=== PATIENT | female | born 1950 | race Caucasian/White ===

== ENCOUNTER 2023-09-21 06:24 | Outpatient (RCR) | payer MEDICARE, OTHER, SELFPAY | END 2023-09-21 23:59 | disposition home or self-care (01) | LOC: RPT 06:24 | PROVIDERS: ATTENDING PHYSICIAN Internal Medicine | DX: M54.51 Vertebrogenic low back pain (principal) | CPT/HCPCS: 97110; 97161 ==

== ENCOUNTER 2023-10-12 12:49 | Outpatient (RCR) | payer MEDICARE, OTHER, SELFPAY | END 2023-10-12 23:59 | disposition home or self-care (01) | LOC: RPT 12:49 | PROVIDERS: ATTENDING PHYSICIAN Internal Medicine | DX: M54.51 Vertebrogenic low back pain (principal); Z73.6 Limitation of activities due to disability | CPT/HCPCS: 97110 ==

== ENCOUNTER 2023-10-24 16:20 | Emergency (ER) | payer MEDICARE, OTHER, SELFPAY ==
[2023-10-24 16:30] VITALS: BP 185/90
--- NOTE | 2023-10-24 16:32 | ED.PDOC.TRB ---
ED Provider Triage
-
Patient seen by provider in Triage?: Seen in Triage
Attestation: A medical screening examination has been initiated by a qualified medical provider. Based on the assessment performed at this time, it has been determined that an emergent medical condition may exist and the patient has been informed
that further medical evaluation and possible additional diagnostic testing may be needed.
HPI: 73-year-old female presents for evaluation of persistent suprapubic discomfort, urinary frequency, and difficulty emptying her bladder over the past week. She was seen by her primary care physician last week and was started on Bactrim however
subsequent urine culture and sensitivity was negative and Bactrim was discontinued. She is no longer on antibiotics. Return to her doctor today at which time she was noted to have 4+ hematuria on urine dip and was referred to the emergency
department. Denies flank pain or fevers
GENERAL: Alert , in no apparent distress
EYE: No visual abnormalities.
NECK: Trachea midline
ENT: No visible abnormalities.
LUNGS: No acute respiratory distress
NEUROLOGICAL: Alert and oriented
SKIN: Skin intact. No visible changes.
MUSCULOSKELETAL: Moving extremities normally
PSYCH: Normal and appropriate interaction.
Assessment: Patient appears clinically well and does not present classically as a kidney stone however given large hematuria will check labs and send for CT of the abdomen pelvis, urinalysis will be sent for completeness
This is a medical evaluation conducted in person to initiate diagnostic evaluation and provide initial therapeutics. Please see further documentation by the treating clinician.
[2023-10-24 17:05] LABS: Urine Albumin Negative (Neg - Trace); Urine Bilirubin Negative (Negative); Urine Character Clear (Clear); Urine Color Yellow; Urine Glucose Negative (Negative); Urine Ketone 1+ (Negative); Urine Leukocyte Trace (Negative); Urine Nitrite Negative (Negative); Urine Occult Blood 3+ (Negative); Urine Specific Gravity 1.015 (<1.030); Urine Urobilinogen Negative (Neg - 1+)
[2023-10-24 17:10] LABS: % Basophils 0.6 % (0-2); % Eosinophils 0.7 % (0-6); % Immature Granulocytes 0.3 % (0-0.5); % Lymphocytes 20.6 % (20.5-51.1); % Monocytes 7.6 % (1.7-9.3); % Neutrophils 70.2 % (42.2-75.2); Absolute Basophils 0.1 10^3/uL (0-0.2); Absolute Eosinophils 0.1 10^3/uL (0-0.7); Absolute Lymphocytes 1.8 10^3/uL (1.2-3.4); Absolute Monocytes 0.7 10^3/uL (0.1-0.6); Absolute Neutrophils 6.2 10^3/uL (1.4-6.5); Hematocrit 35.3 % (37.0-47.0); Hemoglobin 12.9 g/dL (12.0-16.0); Mean Corp Hgb Conc. 36.5 g/dL (33.0-37.0); Mean Corpuscular Hgb 30.7 pg (27.0-31.0); Mean Platelet Volume 9.6 fL (7.4-10.4); Nucleated Red Blood Cells % 0 %; Platelet Count 277 10^3/uL (130-400); White Blood Cell Count 8.8 10^3/uL (4.8-10.8)
[2023-10-24 17:14] LABS: ALT (SGPT) 29 U/L (0-35); AST (SGOT) 32 U/L (14-36); Albumin 4.6 g/dl (3.5-5.0); Alkaline Phosphatase 67 U/L (38-126); Blood Urea Nitrogen 23 mg/dl (7-17); Calcium 9.6 mg/dl (8.4-10.2); Carbon Dioxide 21 mmol/L (22-30); Chloride 89 mmol/L (98-107); Glucose 107 mg/dl (70-99); Potassium 3.6 mmol/L (3.5-5.1); Sodium 127 mmol/L (135-145); Total Bilirubin 0.8 mg/dl (0.2-1.3); Total Protein 7.4 g/dl (6.3-8.2); eGFR > 60.00
[2023-10-24 17:22] LABS: Urine Bacteria Few (Negative); Urine Red Blood Cell 16-20 /HPF (0-2); Urine Squamous Cell 21-25 /LPF (Few)
--- NOTE | 2023-10-24 17:35 | ED.GENMED ---
History of Present Illness
General
Chief Complaint: Abdominal Pain
Source: patient
Time Seen by Provider: 10/24/23 17:19
History of Present Illness
History of Present Illness:
73-year-old female with past medical history of hypertension, hyperlipidemia and hypothyroidism presenting to the emergency department for evaluation at the request of primary care provider after patient has been dealing with urinary frequency and
discomfort, started on Bactrim on October 15 and took this for 4 days but started feel palpitations and she got concerned due to a history of long QT syndrome that this might be interacting so she decided to discontinue the medication. Today she
felt a internal itching within her bladder, contacted the primary care provider who recommended patient come to the ER as patient had a negative urine culture and microscopic hematuria feeling that maybe patient could have a kidney stone. Patient
otherwise denies any fevers, chills, rigors, nausea, vomiting or any other concerns.
Past History
Past History
ED Past Medical History: Cancer, HTN, Hypercholesterolemia and Hypothyroidism
ED Past Surgical History: None
Social History
Tobacco: Non-smoker
Alcohol: None
Drug: None
Personal:
Living: with family
Review of Systems
Review of Systems
All Other Systems: ROS reviewed and negative except as documented in HPI and ROS
Phy Exam
Physical Exam
Physical Exam:
GENERAL: Alert , in no apparent distress
EYE: clear conjunctiva b/l
HEAD: NCAT
ENT: mmm.
CARDIAC: Regular rate and rhythm .
LUNGS: Clear breath sounds bilaterally, no acute respiratory distress, no wheezes/rales/rhonchi
ABDOMEN: Soft, without focal tenderness, no r/g, no cvat
NEUROLOGICAL: Alert and oriented
SKIN: Warm and dry, skin intact.
MUSCULOSKELETAL: well perfused.
PSYCH: Normal and appropriate interaction.
Scores
Heart Failure Risk
Heart Failure Risk Score: Not Applicable
Heart Score for Chest Pain Patients
STEMI patient?: Not applicable
Withdrawal Assessment of Alcohol
Withdrawal Assessment Completed?: Not applicable
Course
Orders/Labs/Results
Orders:
Orders
10/24/23 16:31
CT Abd/pel Without Iv Or Oral Urgent
Comment:
Reason For Exam: hematuria, abd pain
10/24/23 16:51
Complete Blood Count/With Diff Urgent
Comprehensive Metabolic Panel Urgent
Urinalysis Reflex To Culture Urgent
Date Specimen was Collected: 10/24/23
Time Specimen was Collected: 16:49
Urine Microscopic Reflex Cult Urgent
Abnormal Lab Results
10/24/23
16:51
Hct 35.3 L %
(37.0-47.0)
Absolute Monos (auto) 0.7 H 10^3/uL
(0.1-0.6)
Sodium 127 L mmol/L
(135-145)
Chloride 89 L mmol/L
(98-107)
Carbon Dioxide 21 L mmol/L
(22-30)
BUN 23 H mg/dl
(7-17)
Glucose 107 H mg/dl
(70-99)
Urine Ketones 1+ A
(Negative)
Ur Occult Blood Reflex 3+ A
(Negative)
Leukocyte Esterase Rfl Trace A
(Negative)
Urine RBC 16-20 A /HPF
(0-2)
Urine Bacteria (Reflex) Few A
(Negative)
10/24/23 16:51
10/24/23 16:51
Vital Signs
Initial and Last Documented VS:
Initial Vital Signs
Temp Pulse Resp BP Pulse Ox
97.6 F 78 16 185/90 98
10/24/23 16:30 10/24/23 16:30 10/24/23 16:30 10/24/23 16:30 10/24/23 16:30
Last Documented Vital Signs
Temp Pulse Resp BP Pulse Ox
97.6 F 78 16 185/90 98
10/24/23 16:30 10/24/23 16:30 10/24/23 16:30 10/24/23 16:30 10/24/23 16:30
MDM/Problems Addressed
Differential Diagnosis Includes:
cystitis, pyelonephritis, renal dysfunction, malignancy, antibiotic resistance
MDM/Problems Addressed:
73-year-old female presenting to the emergency department for evaluation of continuous urinary symptoms despite being on Bactrim for 4 days. PCP sent patient to the ER to be further evaluated with concern for possible kidney stone. Patient without
fevers or other infectious symptoms. Labs and urine were initiated on arrival. Patient does have 3+ microscopic hematuria but no other signs of infection. Labs show very mild hyponatremia but patient is asymptomatic. Creatinine normal. Normal
white blood cell count. Pending CT scan. Disposition pending
*Radiology
Radiology exam reviewed: radiology read reviewed
*Pulse Oximetry
Patient hypoxic: no
*Critical Care Note
Total Time (30-74mins, 75-104mins- exclusive of procedures): Not Applicable
Patient Management
Discussion with other providers: PCP
Escalation/DeEscalation of care consider admission/obs:
Patient CT scan without any acute pathologies. I notified patient's primary care provider who will continue to help follow-up with the patient. Will trial the patient on a 5-day course of Augmentin for continued urinary tract infection treatment.
I also provided the patient with information for urology and advised close follow-up given the microscopic hematuria.
ED Attending Note
-
Portions of this chart may have been created with voice recognition software.� Occasional wrong word or��sound alike� substitutions may have occurred due to the inherent limitations of voice recognition software.
Discharge Plan
Departure
Patient Disposition: Home (Routine Discharge)
Date of Disposition: 10/24/23
Time of Disposition: 17:35
Patient with high blood pressure during this ER visit?: Yes
Discharge Problem:
Microscopic hematuria
Instructions: Blood in Urine (Hematuria), Adult ED
Prescriptions:
New
amoxicillin-pot clavulanate 875-125 mg tablet
1 tab PO BID 5 Days Qty: 10 0RF
No Action
Allerclear D-24hr Tablet
1 tab PO DAILY
multivitamin [One Daily] 1 EACH tablet
1 ea PO DAILY
levothyroxine 100 MCG tablet
0.25 mcg PO NOW
aspirin 81 MG tablet,chewable
81 mg PO DAILY
hydrochlorothiazide 25 MG tablet
25 mg PO DAILY
metoprolol tartrate 25 MG tablet
25 mg PO DAILY
fish oil-dha-epa 1 EACH capsule
1 ea PO DAILY
cholecalciferol (vitamin D3) 2,000 UNIT tablet
1,000 unit PO DAILY
Referrals:
Jarred Verma Jr., MD [Active] -
Interventions
Interventions:
*Nursing Disposition Last Done: 10/24/23 17:48
WC-Rdctsm-Yztmwoluec Assessment Last Done: 10/24/23 17:47
Discharge Date and Time
Discharge Date/Time: 10/24/23 17:48
Print Language: PORTUGUESE
== END 2023-10-24 17:48 | disposition home or self-care (01) ==
LOC: EMR 16:20
PROVIDERS: Physician Assistant; EMERGENCY PHYSICIAN Emergency Medicine; FAMILY PHYSICIAN Internal Medicine
DX: R31.29 Other microscopic hematuria (principal); E87.1 Hypo-osmolality and hyponatremia; E03.9 Hypothyroidism, unspecified; E78.00 Pure hypercholesterolemia, unspecified; I10 Essential (primary) hypertension
CPT/HCPCS: 99284; 74176; 80053; 81003; 81015; 85025

== ENCOUNTER 2023-10-30 18:23 | Emergency (ER) | payer MEDICARE, OTHER, SELFPAY ==
[2023-10-30 18:27] VITALS: BP 195/93
--- NOTE | 2023-10-30 18:37 | ED.GENMED ---
History of Present Illness
General
Chief Complaint: Urinary Symptoms
Source: patient
Exam Limitations: none
Time Seen by Provider: 10/30/23 18:37
Nursing documentation reviewed up to this point in time: agreed with
History of Present Illness
History of Present Illness:
73 yo female with the following:
10/15 UTI symptoms of suprapubic discomfort, burning and urgency. PCP [facility] put her on Bactrim DS for 7 days but could only tolerate 4 days of it due to palpitations
10/23 UTI symptoms returned saw another [facility] and her urine showed moderate blood
Went to the ER for CT scan which was normal, no stones or hydronephrosis.
UA that day was +3 for blood and she was put on Augmentin 875 mg twice daily for 5 days which she finished and she does states she felt better during that time
She made a urology appointment for 11/20.
10/26 saw Mónica Acevedo [facility] and told to come b ack 11/02 when antibiotic is finished
Last dose Augmentin 10/28.
Fever 99.3. Later that night started to feel urgency and frequency only small amounts. Nauseous.
Up to void q 20-30 minutes all night. No sleep
This a.m. called to move Uro appt. up and has appointment for tomorrow.
Past History
Past History
ED Past Medical History: Cancer, HTN, Hypercholesterolemia and Hypothyroidism
ED Past Surgical History: None
Social History
Tobacco: Non-smoker
Alcohol: None
Drug: None
Personal:
Living: with family
Review of Systems
Review of Systems
Allergies reviewed?: Yes
All Other Systems: ROS reviewed and negative except as documented in HPI and ROS
Constitutional: Denies fever
Respiratory: Denies trouble breathing
Cardiac: Denies chest pain
ABD/GI: Reports abdominal pain and nausea; Denies vomiting or diarrhea
: Reports dysuria, frequency, difficulty voiding and urgency
Musculoskeletal: Reports no symptoms
Skin: Reports no symptoms
Neurological: Reports no symptoms
Phy Exam
Physical Exam
Physical Exam:
GENERAL: No acute distress. A&Ox3.
CONSTITUTIONAL: Afebrile.
RESPIRATORY: Regular respirations, nonlabored, lungs clear.
CARDIOVASCULAR: Regular rate and rhythm, no murmurs, no rubs.
GI: Soft, Mild suprapubic tenderness., normal BS
MUSCULOSKELETAL: Moves with ease. Well perfused.
SKIN: Warm, dry, pink
PSYCH: Normal mood and affect. Well kept, interactive and appropriate
NEUROLOGIC: Awake, alert and oriented. No focal neurological deficits
Course
Orders/Labs/Results
Orders:
Orders
10/30/23 18:37
Bladder Scan- Treatment ONCE
10/30/23 19:30
Phenazopyridine HCl [Pyridium] 100 mg PO NOW STA
10/30/23 19:31
Amoxicillin 875 mg/Clav 125 mg [Augmentin 875 mg/125 mg] 1 tablet PO NOW STA
10/30/23 20:09
Phenazopyridine HCl [Pyridium] 100 mg PO NOW STA
Vital Signs
Initial and Last Documented VS:
Initial Vital Signs
Temp Pulse Resp BP Pulse Ox
97.6 F 79 16 195/93 96
10/30/23 18:27 10/30/23 18:27 10/30/23 18:27 10/30/23 18:27 10/30/23 18:27
Last Documented Vital Signs
Temp Pulse Resp BP Pulse Ox
97.6 F 70 18 172/88 98
10/30/23 18:27 10/30/23 20:01 10/30/23 20:01 10/30/23 20:01 10/30/23 20:01
MDM/Problems Addressed
Differential Diagnosis Includes:
hemorrhagic cystitis, UTI, urine retention
MDM/Problems Addressed:
73 yo female with the following:
10/15 UTI symptoms of suprapubic discomfort, burning and urgency. PCP [facility] put her on Bactrim DS for 7 days but could only tolerate 4 days of it due to palpitations
10/23 UTI symptoms returned saw another [facility] and her urine showed moderate blood
Went to the ER for CT scan which was normal, no stones or hydronephrosis.
UA that day was +3 for blood and she was put on Augmentin 875 mg twice daily for 5 days which she finished and she does states she felt better during that time
She made a urology appointment for 11/20.
10/26 saw Mónica Acevedo [facility] and told to come b ack 11/02 when antibiotic is finished
Last dose Augmentin 10/28.
Fever 99.3. Later that night started to feel urgency and frequency only small amounts. Nauseous.
Up to void q 20-30 minutes all night. No sleep
This a.m. called to move Uro appt. up and has appointment for tomorrow. \\
Bladder scan with no urine in bladder
Pt afebrile, NAD
Gave one dose Augmenting here and Pyridium
Had lab work on 10/23, No indication for repeat lab work.
Pt ambulated out with normal gait at discharge.
Case discussed with Dr. Frey who agrees with assessment and plan
*Critical Care Note
Total Time (30-74mins, 75-104mins- exclusive of procedures): Not Applicable
ED Attending Note
-
Portions of this chart may have been created with voice recognition software.� Occasional wrong word or��sound alike� substitutions may have occurred due to the inherent limitations of voice recognition software.
Discharge Plan
Departure
Patient Disposition: Home (Routine Discharge)
Date of Disposition: 10/30/23
Time of Disposition: 19:56
Patient with high blood pressure during this ER visit?: Yes
Condition: Fair
Discharge Problem:
Bladder spasms
Instructions: Bladder Pain Syndrome (Interstitial Cystitis) ED
Prescriptions:
No Action
Allerclear D-24hr Tablet
1 tab PO DAILY
multivitamin [One Daily] 1 EACH tablet
1 ea PO DAILY
levothyroxine 100 MCG tablet
0.25 mcg PO NOW
aspirin 81 MG tablet,chewable
81 mg PO DAILY
hydrochlorothiazide 25 MG tablet
25 mg PO DAILY
metoprolol tartrate 25 MG tablet
25 mg PO DAILY
fish oil-dha-epa 1 EACH capsule
1 ea PO DAILY
cholecalciferol (vitamin D3) 2,000 UNIT tablet
1,000 unit PO DAILY
amoxicillin-pot clavulanate 875-125 mg tablet
1 tab PO BID 5 Days Qty: 10 0RF
Referrals:
Mira Graf CRNP [Specified Professional Personl] - Keep scheduled appt
Princess Cevallos MD [Family Provider] -
Activity Restrictions/Additional Instructions:
As we discussed, keep the appointment with Urology tomorrow.
You were given Augmentin 875 mg and Pyridium tonight. You may take the other Pyridium in 6 hours if needed.
Ask the Urology team if you should continue another regimen of Augmentin and what they recommend for the bladder spasms.
There was no urine in your bladder on Ultrasound.
Interventions
Interventions:
*Risk Screen - Suicide Last Done: 10/30/23 19:16
*General Assessment Last Done: 10/30/23 19:16
*Neglect/Abuse Screening Last Done: 10/30/23 19:16
ED- Fall Risk Assessment Last Done: 10/30/23 20:22
*ED COVID-19 Vaccine History Last Done: 10/30/23 19:16
*Nursing Disposition Last Done: 10/30/23 20:22
ED-Female Genitourinary Assessment Last Done: 10/30/23 19:15
Discharge Date and Time
Discharge Date/Time: 10/30/23 20:23
Print Language: MARTINIQUA[place]
[2023-10-30] MEDS: AUGMENTIN 875 MG/125 MG 1 TABLET PO (19:37)
[2023-10-30] MEDS: Pyridium 100 MG PO ×2 (19:37→20:17)
[2023-10-30 20:01] VITALS: BP 172/88
== END 2023-10-30 20:23 | disposition home or self-care (01) ==
LOC: EMR 18:23
PROVIDERS: EMERGENCY PHYSICIAN Emergency Medicine; FAMILY PHYSICIAN Internal Medicine
DX: N32.89 Other specified disorders of bladder (principal); R50.9 Fever, unspecified; R11.0 Nausea; R39.15 Urgency of urination; R35.0 Frequency of micturition; R30.0 Dysuria; R10.9 Unspecified abdominal pain; I10 Essential (primary) hypertension; E78.00 Pure hypercholesterolemia, unspecified; E03.9 Hypothyroidism, unspecified; M19.90 Unspecified osteoarthritis, unspecified site; Z85.828 Personal history of other malignant neoplasm of skin; Z87.440 Personal history of urinary (tract) infections
CPT/HCPCS: 99283; 51798

== ENCOUNTER 2023-11-21 06:16 | Outpatient (RCR) | payer MEDICARE, OTHER, SELFPAY | END 2023-11-21 23:59 | disposition home or self-care (01) | LOC: RPT 06:16 | PROVIDERS: ATTENDING PHYSICIAN Nurse Practitioner; FAMILY PHYSICIAN Internal Medicine | DX: N30.10 Interstitial cystitis (chronic) without hematuria (principal); Z73.6 Limitation of activities due to disability; K59.00 Constipation, unspecified | CPT/HCPCS: 97162; 97530 ==

== ENCOUNTER 2023-12-26 08:55 | Outpatient (RCR) | payer MEDICARE, OTHER, SELFPAY | END 2023-12-26 23:59 | disposition home or self-care (01) | LOC: RPT 08:55 | PROVIDERS: ATTENDING PHYSICIAN Nurse Practitioner; FAMILY PHYSICIAN Internal Medicine | DX: N30.10 Interstitial cystitis (chronic) without hematuria (principal); Z73.6 Limitation of activities due to disability | CPT/HCPCS: 97110; 97140; 97530 ==

== ENCOUNTER → 2024-03-20 14:40 | Outpatient (REF) | payer MEDICARE, OTHER, SELFPAY | LOC: WDC 14:40 | PROVIDERS: ATTENDING PHYSICIAN Internal Medicine | DX: Z13.820 Encounter for screening for osteoporosis (principal); Z78.0 Asymptomatic menopausal state; Z12.31 Encounter for screening mammogram for malignant neoplasm of breast | CPT/HCPCS: 77063; 77067; 77080 ==